=== PATIENT | male | born 2000 | race Two or more races ===

== ENCOUNTER 2024-04-24 18:01 | Inpatient (IN) | payer OTHER ==
[2024-04-24] MEDS ORDERED: MAGNESIUM HYDROXIDE SUSPENSION 30 ML UDCUP PO PRN (18:15)
[2024-04-24] MEDS ORDERED: ACETAMINOPHEN 325 MG TABLET PO PRN (18:15)
[2024-04-24] MEDS: DEXTROSE 5%-0.45% SODIUM CHL 1,000 ML IV SCH (18:15)
[2024-04-24] MEDS ORDERED: DiphenhydrAMINE HCL 50 MG/ML VIAL IM ONE (20:00)
[2024-04-24] MEDS ORDERED: HALOPERIDOL LACTATE 5 MG/ML VIAL IM ONE (20:00)
[2024-04-24] MEDS ORDERED: LORazepam 2 MG/ML VIAL IM ONE (20:00)
[2024-04-25] MEDS: FAMOTIDINE 20 MG TABLET PO SCH (09:00)
[2024-04-25 09:36] VITALS: BP 133/85; PULSE 80; RESP 18; TEMP 98.4; O2SAT 100
[2024-04-25 10:34] LABS: APPEARANCE,URINE CLEAR (CLEAR); BILIRUBIN,URINE NEGATIVE (NEGATIVE); COLOR,URINE LIGHT YELLOW (YELLOW); GLUCOSE, URINE (UA) NEGATIVE (NEGATIVE); KETONES,URINE =>150 mg/dL (NEGATIVE); LEUKOCYTE ESTERASE ,URINE NEGATIVE (NEGATIVE); NITRATE,URINE NEGATIVE (NEGATIVE); OCCULT BLOOD,URINE TRACE (NEGATIVE); PROTEIN,URINE NEGATIVE (NEGATIVE); SPECIFIC GRAVITIY, URINE 1.009 (1.003-1.030); UROBILINOGEN,URINE <=1.0 mg/dL (<=1.0)
[2024-04-25 10:42] LABS: ALCOHOL, URINE DRUG SCREEN NEGATIVE (NEGATIVE); AMPHET/METH SCREEN,URINE NEGATIVE (NEGATIVE); BARBITURATE SCREEN, URINE NEGATIVE (NEGATIVE); BENZODIAZEPINES SCREEN,URINE NEGATIVE (NEGATIVE); CANNABINOID SCREEN,URINE NEGATIVE (NEGATIVE); COCAINE SCREEN,URINE NEGATIVE (NEGATIVE); METHADONE SCREEN, URINE NEGATIVE (NEGATIVE); OPIATE SCREEN,URINE NEGATIVE (NEGATIVE); PHENCYCLIDINE SCREEN,URINE NEGATIVE (NEGATIVE)
[2024-04-25 10:45] LABS: BACTERIA,URINE None Seen /HPF (None Seen); RBC,URINE None Seen /HPF (0-2); SQUAMOUS EPITHELIAL CELL,UR None Seen /LPF (None Seen); WBC,URINE None Seen /HPF (0-5)
[2024-04-25 15:46] VITALS: BP 128/82; PULSE 82; RESP 18; TEMP 98.2; O2SAT 98
== END 2024-04-25 20:38 | DRG 923 ==
LOC: EMS 18:01 → EDH 20:53 → 6N 04-25 09:00
PROVIDERS: ADMIT Internal Medicine; ATTEND Internal Medicine
DX: T73.0XXA Starvation, initial encounter (principal); F99 Mental disorder, not otherwise specified; I10 Essential (primary) hypertension; K59.00 Constipation, unspecified; X58.XXXA Exposure to other specified factors, initial encounter
CPT/HCPCS: 80307; 81001; 99285; G0378